=== PATIENT | female | born 1985 | race Caucasian/White ===

== ENCOUNTER 2022-06-19 15:56 | Emergency (ER) | payer SELFPAY | END 2022-06-19 18:07 | disposition home or self-care (01) | LOC: MW.ED 15:56 | DX: S83.421A Sprain of lateral collateral ligament of right knee, initial encounter (principal); Z72.0 Tobacco use; X50.1XXA Overexertion from prolonged static or awkward postures, initial encounter; Y92.830 Public park as the place of occurrence of the external cause | CPT/HCPCS: 73562-26-RT; 73562-RT; 99283 ==